=== PATIENT | female | born 1995 | race Hispanic/Latino ===

== ENCOUNTER 2025-06-11 10:02 | Observation (INO) | payer SELFPAY ==
[2025-06-11 10:53] LABS: #Basophils 0.04 10x3/uL (0.0-0.2); #Eosinophils 0.16 10x3/uL (0.0-0.7); #Monocytes 0.59 10x3/uL (0.11-0.59); #Neutrophils 3.33 10x3/uL (1.40-6.50); %Basophils 0.6 % (0.0-1.0); %Eosinophils 2.4 % (0.0-10.0); %Lymphocytes 37.7 % (21.0-51.0); %Monocytes 8.9 % (0.0-10.0); %Neutrophils 50.2 % (42.0-75.0); Hematocrit 40.3 % (36.0-47.0); Hemoglobin 13.2 g/dL (12.0-16.0); Mean Corpuscular Hemoglobin 29.5 pg (27.0-31.0); Mean Corpuscular Volume 90.0 fL (78.0-98.0); Platelet Count 269 10x3/uL (130-400); Red Blood Cell (RBC) Count 4.48 mill/uL (4.20-5.40); White Blood Cell (WBC) Count 6.63 10x3/uL (4.8-10.8)
[2025-06-11 11:10] LABS: ALT (SGPT) 13 U/L (Less than 34); AST (SGOT) 20 U/L (11-34); Albumin 4.3 g/dL (3.1-4.5); Alkaline Phosphatase 49 U/L (40-110); Anion Gap 14 mmol/L (10-20); BUN (Urea Nitrogen) 16 mg/dL (7.0-18.7); Bilirubin, Total 0.4 mg/dL (0.3-1.2); Calc. Creatinine Clearance 0 mL/min (70-130); Calcium 9.2 mg/dL (7.8-10.44); Carbon Dioxide 23 mmol/L (22-29); Chloride 107 mmol/L (98-107); Globulin 2.5 g/dL (2.4-3.5); Glucose 93 mg/dL (70-105); Potassium 4.0 mmol/L (3.5-5.1); Sodium 140 mmol/L (136-145)
[2025-06-11] MEDS ORDERED: Iopamidol-370 76% 500 ML MDV (1 ML CHARGE) ONE (11:16)
[2025-06-11] MEDS ORDERED: diphenhydrAMINE 50 MG/ML VIAL ONE (11:26)
[2025-06-11] MEDS ORDERED: Metoclopramide HCl 10 MG (2 mL) VIAL ONE (11:27)
[2025-06-11 11:30] LABS: Pregnancy Test - Urine (BHCG) Negative (Negative); Pregu Control Background? CLEAR/WHITE (CLR/WHITE); Pregu Control Bar Appear? YES (CONTROL BAR)
[2025-06-11 11:31] LABS: Bacteria/HPF Rare-Few HPF (None Seen); CAUTI Indications for Culture Acute Hematuria; Glucose, Urine (Dipstick) Normal (Negative); Leukocyte Negative Leu/uL (Negative); Protein, Urine (Dipstick) Negative (Neg-Trace); Specific Gravity, Urine 1.019 (1.002-1.036); WBC/HPF 0-3 HPF (0-3)
[2025-06-11 11:32] LABS: Urine Culture Reflex No No
[2025-06-11 11:39] LABS: Cocaine Metabolite Screen Negative (Negative); THC/Cannabinoid Screen Negative (Negative); Tricyclic Screen Negative (Negative)
[2025-06-11 12:02] LABS: INR-International Normal Ratio 1.0; PTT 30.2 sec (22.9-36.1); Prothrombin Time 13.4 sec (12.0-14.7)
[2025-06-11] MEDS ORDERED: hydrALAZINE 20 MG/ML VIAL SLOW IVP PRN (12:46)
[2025-06-11] MEDS ORDERED: Acetaminophen 325 MG TAB PO PRN (12:46)
[2025-06-11] MEDS ORDERED: Glucagon 1 MG/ML KIT IM PRN (12:46)
[2025-06-11] MEDS ORDERED: Dextrose 50% Abboject 50 ML SYRINGE SLOW IVP PRN (12:46)
[2025-06-11] MEDS ORDERED: Methocarbamol 500 MG TAB PO PRN (12:46)
[2025-06-11] MEDS ORDERED: Ondansetron PF 4 MG/2 ML Vial IVP PRN (12:46)
[2025-06-11] MEDS ORDERED: Aspirin Chewable 81 MG TAB ONE (16:10)
[2025-06-11 17:09] VITALS: BMI 21.9
[2025-06-11] MEDS: Senokot S 8.6-50 MG TAB PO SCH (20:48)
[2025-06-12 04:40] LABS: #Basophils 0.04 10x3/uL (0.0-0.2); #Eosinophils 0.19 10x3/uL (0.0-0.7); #Monocytes 0.63 10x3/uL (0.11-0.59); #Neutrophils 2.78 10x3/uL (1.40-6.50); %Basophils 0.6 % (0.0-1.0); %Eosinophils 2.8 % (0.0-10.0); %Lymphocytes 46.5 % (21.0-51.0); %Monocytes 9.2 % (0.0-10.0); %Neutrophils 40.6 % (42.0-75.0); Hematocrit 37.5 % (36.0-47.0); Hemoglobin 11.6 g/dL (12.0-16.0); Mean Corpuscular Hemoglobin 31.4 pg (27.0-31.0); Mean Corpuscular Volume 101.6 fL (78.0-98.0); Platelet Count 132 10x3/uL (130-400); Red Blood Cell (RBC) Count 3.69 mill/uL (4.20-5.40); White Blood Cell (WBC) Count 6.84 10x3/uL (4.8-10.8)
[2025-06-12 04:47] LABS: Anion Gap 11 mmol/L (10-20); BUN (Urea Nitrogen) 14 mg/dL (7.0-18.7); Calc. Creatinine Clearance 169 mL/min (70-130); Calcium 8.0 mg/dL (7.8-10.44); Carbon Dioxide 22 mmol/L (22-29); Chloride 109 mmol/L (98-107); Glucose 81 mg/dL (70-105); Potassium 3.4 mmol/L (3.5-5.1); Sodium 139 mmol/L (136-145)
[2025-06-12 11:59] VITALS: BP 111/66; TEMP 98.3
[2025-06-13] MEDS ORDERED: PNEUMOC 20-VAL CONJ-DIP CRM/PF 0.5 ML SYRINGE IM ONE (09:00)
[2025-06-13] MEDS ORDERED: FLU (Fluarix Triv) 25-26 (6MOS UP)/PF 45 MCG/0.5 ML Syringe IM ONE (09:00)
== END 2025-06-12 15:15 | disposition home or self-care (01) ==
LOC: ERS 10:02 → ERHOLD 12:56 → 2SE 17:08
PROVIDERS: ADMIT Surgery; ATTEND Surgery
DX: S06.0XAA Concussion with loss of consciousness status unknown, initial encounter (principal); Z88.8 Allergy status to other drugs, medicaments and biological substances; Z91.018 Allergy to other foods; X58.XXXA Exposure to other specified factors, initial encounter
CPT/HCPCS: 36415; 70450; 70496; 70498; 80048; 80053; 80306; 80307; 81001; 81025; 85025; 85610; 85730; 93005; 95700; 95711; 95957; 96365; 96375; G0378; G0390; J1200; J2765; J7030; Q9967